=== PATIENT | female | born 1985 | race Caucasian/White ===

== ENCOUNTER 2022-10-27 00:34 | Emergency (ER) | payer MEDICAID ==
[~2022-10-27] VITALS: Wt 81.7 kg
== END 2022-10-27 01:12 | disposition home or self-care (01) ==
LOC: ED 00:34
DX: S01.111A Laceration without foreign body of right eyelid and periocular area, initial encounter (principal); Z88.2 Allergy status to sulfonamides; W01.190A Fall on same level from slipping, tripping and stumbling with subsequent striking against furniture, initial encounter; Y93.89 Activity, other specified; Y92.59 Other trade areas as the place of occurrence of the external cause; Y99.8 Other external cause status